=== PATIENT | female | born 1995 | race Two or more races ===

== ENCOUNTER 2023-03-04 17:06 | Observation (INO) | payer OTHER | END 2023-03-04 20:54 | disposition home or self-care (01) | LOC: LDRP 17:06 | PROVIDERS: ADMIT Obstetrics & Gynecology; ATTEND Obstetrics & Gynecology | DX: O47.1 False labor at or after 37 completed weeks of gestation (principal); Z3A.40 40 weeks gestation of pregnancy | CPT/HCPCS: 59025; 81002; 94760; G0378 ==

== ENCOUNTER 2023-03-05 05:48 | Inpatient (IN) | payer OTHER ==
[~2023-03-05] VITALS: Ht 160 cm; Wt 100.7 kg
[2023-03-05] MEDS ORDERED: WITCH HAZEL-GLYCERIN PAD TOP PRN (07:00)
[2023-03-05] MEDS ORDERED: LIDOCAINE 2%HCL (LOCAL ANESTH.) INJ 20ML MDV IJ PRN (07:00)
[2023-03-05] MEDS ORDERED: PROMETHAZINE HCL 25 MG/ML 1ML IM PRN (07:00)
[2023-03-05] MEDS ORDERED: PROMETHAZINE HCL 25 MG/ML 1ML IV PRN (07:00)
[2023-03-05] MEDS ORDERED: BUTORPHANOL TARTRATE 2 MG/1 ML VIAL IV PRN ×2 (07:00)
[2023-03-05] MEDS ORDERED: PHISODERM TOP SOLN 240ML BTL TOP PRN (07:00)
[2023-03-05] MEDS ORDERED: LACT. RINGERS/OXYTOCIN 20UNITS 500 ML IV ONE (07:30)
[2023-03-05 07:36] LABS: Urine Epithelial Cast None Seen /hpf (<5)
[2023-03-05 07:49] LABS: Basophils # (auto) 0 10 ^3/uL (0-0.2); Basophils % (auto) 0.3 % (0.0-2.0); Eosinophils # (auto) 0 10 ^3/uL (0-0.8); Eosinophils % (auto) 0.4 % (0.0-7.0); Hematocrit 35.7 % (36.0-46.0); Hemoglobin 11.3 g/dL (12.2-16.2); Lymphocytes # (auto) 1.8 10 ^3/uL (0.4-5.4); Lymphocytes % (auto) 16.8 % (10.0-50.0); Mean Corpuscular Hemoglobin 24.6 pg (28.0-32.0); Mean Corpuscular Hgb Conc. 31.7 g/dL (32.0-36.0); Mean Corpuscular Volume 77.8 fL (80.0-100.0); Monocytes % (auto) 9.2 % (0.0-12.0); Neutrophils # (auto) 7.9 10 ^3/uL (1.6-8.6); Neutrophils % (auto) 73.3 % (37.0-80.0); Red Blood Cells 4.59 10^6/uL (4.0-5.20); Red Cell Distribution Width 16.2 % (11.8-14.3); White Blood Cell 10.7 10^3/uL (4.4-10.8)
[2023-03-05] MEDS: LACTATED RINGER'S 1,000 ML IV SCH ×3 (07:49→15:32)
[2023-03-05] MEDS: DERMOPLAST 60ML BOTTLE TOP PRN (07:52)
[2023-03-05 08:06] LABS: Urine Bacteria NONE SEEN /hpf (None Seen); Urine Blood 3+ /uL (Negative); Urine Clarity HAZY (Clear); Urine Color Colorless (Yellow); Urine Protein, UAD Negative (Negative); Urine Specific Gravity 1.005 (1.001-1.035); Urine Urobilinogen Normal (Negative); Urine WBC 9 /hpf (0 - 5); Urine pH 6.5 (5.0-8.0)
[2023-03-05 08:12] LABS: INR 0.9 (0.9-1.15); Partial Thromboplastin Time 25.9 SEC (24.5-34.5); Prothrombin Time 9.5 sec (9.3-11.8)
[2023-03-05 08:16] LABS: Amphetamine Screen, Urine Neg (NEGATIVE); Barbiturate Scree,Urine Neg (NEGATIVE); Benzodiazephine Screen, Urine Neg (NEGATIVE); Cannabinoid Screen, Urine Neg (NEGATIVE); Cocaine Screen, Urine Neg (NEGATIVE); Opiate Scree,Urine Neg (NEGATIVE); Phencyclidine Screen, Urine Neg (NEGATIVE)
[2023-03-05 08:17] LABS: Alanine Aminotransferase < 9 U/L (7-40); Albumin 3.9 g/dL (3.2-4.8); Alkaline Phosphatase 176 U/L (46-116); Anion Gap 10 (5-15); Aspartate Aminotransferase 13 U/L (13-40); BUN/Creatinine Ratio 9.1 (10.0-20.0); Bilirubin, Total 0.4 mg/dL (0.2-1.0); Blood Urea Nitrogen < 5 mg/dL (9-23); Carbon Dioxide 21 mmol/L (20-30); Chloride 106 mmol/L (98-107); Glucose 79 mg/dL (74-106); Potassium 3.9 mmol/L (3.5-5.1); Sodium 137 mmol/L (136-145); Total Protein 6.4 g/dL (5.7-8.2)
[2023-03-05] MEDS ORDERED: NALOXONE HCL 0.4 MG/ML VIAL IV ONE (08:30)
[2023-03-05] MEDS ORDERED: ePHEDrine SULFATE 50 MG/ML AMP IV ONE (08:30)
[2023-03-05] MEDS ORDERED: LIDOCAINE HCL 2 %PF INJ 10ML AMP IJ ONE (08:30)
[2023-03-05] MEDS ORDERED: fentaNYL CITRATE 100 MCG/2 ML VL IV ONE (08:30)
[2023-03-05] MEDS ORDERED: LACT. RINGERS/OXYTOCIN 20UNITS 1,000 ML IV SCH (09:00)
[2023-03-05] MEDS ORDERED: TERBUTALINE SULFATE 1 MG/ML 1ML VIAL SC PRN (09:00)
[2023-03-05] MEDS ORDERED: AZITHROMYCIN 250 MG TAB PO SCH (10:00)
[2023-03-05] MEDS ORDERED: ROPIVACAINE HCL 100 ML ONE (10:09)
[2023-03-05] MEDS ORDERED: ONDANSETRON HCL 4 MG/2 ML VIAL IV PRN (13:15)
[2023-03-05] MEDS ORDERED: miSOPROStol 100 mcg TAB ONE (19:24)
[2023-03-05] MEDS ORDERED: METHYLERGONOVINE MALEATE 0.2 MG/ML AMP IM ONE ×2 (19:25→21:15)
[2023-03-05] MEDS ORDERED: ONDANSETRON ODT 4 MG TAB PO PRN (20:45)
[2023-03-05] MEDS ORDERED: ACETAMINOPHEN 325 MG TAB PO PRN (20:45)
[2023-03-05] MEDS: IBUPROFEN 600 MG TAB PO PRN (21:06)
[2023-03-05] MEDS ORDERED: DOCUSATE SOD 100 MG CAP PO SCH (22:00)
[2023-03-05] MEDS: LACT. RINGERS/OXYTOCIN 20UNITS 500 ML IV ONE (22:32)
[2023-03-05] MEDS: PIPERACILLIN-TAZOB 3.375GM 100 ML IV SCH (22:41)
[2023-03-05 23:00] VITALS: BP 124/79; PULSE 95; RESP 20; TEMP 98; O2SAT 99
[2023-03-06 03:00] VITALS: BP 109/62; PULSE 93; RESP 16; TEMP 98.3
[2023-03-06] MEDS: LACT. RINGERS/OXYTOCIN 20UNITS 500 ML IV ONE (03:00)
[2023-03-06] MEDS: IBUPROFEN 600 MG TAB PO PRN (03:18)
[2023-03-06] MEDS: PIPERACILLIN-TAZOB 3.375GM 100 ML IV SCH ×3 (05:13→13:51)
[2023-03-06 07:00] VITALS: BP 126/65; PULSE 100; RESP 16; RESP 20; TEMP 97.7; O2SAT 98
[2023-03-06 07:06] LABS: RPR Non Reactive (Non Reactive)
[2023-03-06 07:27] LABS: Basophils # (auto) 0 10 ^3/uL (0-0.2); Basophils % (auto) 0.2 % (0.0-2.0); Eosinophils # (auto) 0 10 ^3/uL (0-0.8); Eosinophils % (auto) 0.2 % (0.0-7.0); Hematocrit 25.9 % (36.0-46.0); Hemoglobin 8.2 g/dL (12.2-16.2)
[2023-03-06 07:29] LABS: Lymphocytes # (auto) 1.8 10 ^3/uL (0.4-5.4); Lymphocytes % (auto) 9.8 % (10.0-50.0); Mean Corpuscular Hemoglobin 24.9 pg (28.0-32.0); Mean Corpuscular Hgb Conc. 31.8 g/dL (32.0-36.0); Mean Corpuscular Volume 78.2 fL (80.0-100.0); Neutrophils # (auto) 14.1 10 ^3/uL (1.6-8.6); Neutrophils % (auto) 78.8 % (37.0-80.0); Red Blood Cells 3.31 10^6/uL (4.0-5.20); Red Cell Distribution Width 16.6 % (11.8-14.3); White Blood Cell 17.9 10^3/uL (4.4-10.8)
[2023-03-06 08:22] LABS: Alkaline Phosphatase 119 U/L (46-116); Calcium 8.5 mg/dL (8.5-10.1); Carbon Dioxide 23 mmol/L (20-30); Chloride 108 mmol/L (98-107)
[2023-03-06 08:23] LABS: Anion Gap 8 (5-15); Aspartate Aminotransferase 23 U/L (13-40); BUN/Creatinine Ratio 11.1 (10.0-20.0); Blood Urea Nitrogen 7 mg/dL (9-23); Glucose 87 mg/dL (74-106); Sodium 139 mmol/L (136-145)
[2023-03-06 08:24] LABS: Bilirubin, Total 0.5 mg/dL (0.2-1.0); Total Protein 4.9 g/dL (5.7-8.2)
[2023-03-06 08:30] LABS: Alanine Aminotransferase < 9 U/L (7-40)
[2023-03-06 11:00] VITALS: BP 108/67; PULSE 101; RESP 20; TEMP 97.7; O2SAT 97
[2023-03-06 15:06] VITALS: BP 104/59; PULSE 100; RESP 20; TEMP 97.7; O2SAT 98
[2023-03-06] MEDS: DERMOPLAST 60ML BOTTLE TOP PRN (18:36)
[2023-03-06 18:50] VITALS: BP 129/73; PULSE 107; RESP 17; TEMP 97.6; O2SAT 99
[2023-03-06] MEDS ORDERED: PIPERACILLIN-TAZOB 3.375GM 100 ML IV SCH ×2 (20:30)
[2023-03-07 03:36] LABS: Chlamydia Trachomatis, NAA Negative (Negative); Neisseria gonorrhoeae, NAA Negative (Negative)
[2023-03-08 20:06] LABS: Treponema pallidum Ab (FTA-Ab) Non Reactive (Non Reactive)
== END 2023-03-06 20:50 | disposition home or self-care (01) | DRG 805 ==
LOC: LDRP 05:48 → OBSVTOIN 06:40 → LDRP 20:53
PROVIDERS: ADMIT Obstetrics & Gynecology; ATTEND Obstetrics & Gynecology
PROC: 10D07Z6 Extraction of Products of Conception, Vacuum, Via Natural or Artificial Opening (ICD-10-PCS; principal; 2023-03-05)
PROC: 0KQM0ZZ Repair Perineum Muscle, Open Approach (ICD-10-PCS; 2023-03-05)
PROC: 10H07YZ Insertion of Other Device into Products of Conception, Via Natural or Artificial Opening (ICD-10-PCS; 2023-03-05)
PROC: 10907ZC Drainage of Amniotic Fluid, Therapeutic from Products of Conception, Via Natural or Artificial Opening (ICD-10-PCS; 2023-03-05)
PROC: 3E0R3BZ Introduction of Anesthetic Agent into Spinal Canal, Percutaneous Approach (ICD-10-PCS; 2023-03-05)
PROC: 00HU33Z Insertion of Infusion Device into Spinal Canal, Percutaneous Approach (ICD-10-PCS; 2023-03-05)
DX: O48.0 Post-term pregnancy (principal); O41.1230 Chorioamnionitis, third trimester, not applicable or unspecified; Z37.0 Single live birth; O75.2 Pyrexia during labor, not elsewhere classified; R71.0 Precipitous drop in hematocrit; Z3A.40 40 weeks gestation of pregnancy; O70.1 Second degree perineal laceration during delivery; O76 Abnormality in fetal heart rate and rhythm complicating labor and delivery; O99.892 Other specified diseases and conditions complicating childbirth
CPT/HCPCS: 36415; 59025; 59409; 62282; 80053; 80307; 81001; 81002; 85025; 85610; 85730; 86592; 86850; 86900; 86901; 94760; 96360; 96361; 96365; 96366; G0378; J2543; J2590

== ENCOUNTER 2023-11-23 17:53 | Emergency (ER) | payer MEDICAID, OTHER ==
[~2023-11-23] VITALS: Ht 162.6 cm; Wt 94.4 kg
[2023-11-23 18:14] VITALS: BP 128/85; PULSE 111; RESP 18; O2SAT 96
[2023-11-23 18:53] LABS: Urine Bacteria FEW /hpf (None Seen); Urine Blood Negative /uL (Negative); Urine Clarity Clear (Clear); Urine Color Light-Yellow (Yellow); Urine Protein, UAD Negative (Negative); Urine Specific Gravity 1.021 (1.001-1.035); Urine Urobilinogen Normal (Negative); Urine WBC 1 /hpf (0 - 5)
[2023-11-23] MEDS ORDERED: HYDR-4902 PO (19:59)
== END 2023-11-23 20:50 | disposition home or self-care (01) ==
LOC: ER 17:53
DX: N83.202 Unspecified ovarian cyst, left side (principal); R10.2 Pelvic and perineal pain; Z79.899 Other long term (current) drug therapy
CPT/HCPCS: 76856; 81001; 81025

== ENCOUNTER 2024-12-21 17:29 | Emergency (ER) | payer MEDICAID ==
[~2024-12-21] VITALS: Ht 162.6 cm; Wt 100.4 kg
[~2024-12-21 17:29] MED LIST: HYDR-4902 PO
[2024-12-21 17:33] VITALS: TEMP 97.4
--- NOTE | 2024-12-21 18:33 | ED.PDOC ---
History of Present Illness HPI Comments 29 y/o F, presents to the ED for CC of flank-pain. Patient states, she has been experiencing left-sided flank pain sudden onset, this morning (12/21/24). Patient reports, pain to worsen with movement and with inspiration. Patient denies any trauma, injury, fall, or urinary symptoms. No other symptoms or yaa fying factors are present at this time. Chief Complaint: Flank Pain Time Seen by MD: 18:20 Primary Care Provider: THAD Auguste Notes: Nurses Notes, Medications, Allergies Allergies: Coded Allergies: NO KNOWN ALLERGIES (Unverified , 03/05/23) Home Meds Active Scripts Tramadol HCl (Tramadol HCl) 50 Mg Tab, 50 MG PO Q12HP PRN for 5 Days, #10 TAB Prov:ENRIQUE ARREGUIN MD 12/21/24 Hydrocodone-Acetaminophen (Hydrocodone Bitartrate/AC 5-325 mg) 1 Tab Tab, 1 TAB PO Q8HP PRN for 5 Days, #15 TAB Prov:ENRIQUE ARREGUIN MD 11/23/23 Information Source: Patient Mode of Arrival: Ambulatory Severity: Moderate Timing: Hours Duration: Since onset Prehospital treatment: None Past Medical History PAST MEDICAL HISTORY: Denies Surgical History: Denies all surgeries [employer] History: Ovarian Cysts Family History Family History: Family hx of DM, Family hx of heart leigh Social History Smoker: Non-Smoker Alcohol: Occasionally Drugs: Denies Drug Use Lives In: Home Constitutional: denies: chills, diaphoresis, fatigue, fever, malaise, sweats, weakness, others EENTM: denies: blurred vision, double vision, ear bleeding, ear discharge, ear drainage, ear pain, ear ringing, eye pain, eye redness, hearing loss, mouth pain, mouth swelling, nasal discharge, nose bleeding, nose congestion, nose pain, photophobia, tearing, throat pain, throat swelling, voice changes, others Respiratory: denies: cough, hemoptysis, orthopnea, SOB at rest, shortness of breath, SOB with excertion, stridor, wheezing, others Cardiovascular: denies: chest pain, dizzy spells, diaphoresis, Dyspnea on exertion, edema, irregular heart beat, left arm pain, lightheadedness, palpitations, PND, syncope, others Gastrointestinal: denies: abdomen distended, abdominal pain, blood streaked bowels, constipated, diarrhea, dysphagia, difficulty swallowing, hematemesis, m nora, nausea, poor appetite, poor fluid intake, rectal bleeding, rectal pain, vomiting, others Genitourinary: reports: flank pain; denies: abnormal vagina bleeding, burning, dyspareunia, dysuria, frequency, hematuria, incontinence, pain, , vagina discharge, urgency, others Neurological: denies: dizziness, fainting, headache, left sided numbness, left sided weakness, numbness, paresthesia, pre-existing deficit, right sided numbness, right sided weakness, seizure, speech problems, tingling, tremors, weakness, others Musculoskeletal: denies: back pain, gout, joint pain, joint swelling, muscle pain, muscle stiffness, neck pain, others Integumetry: denies: bruises, change in color, change in hair/nails, dryness, laceration, lesions, lumps, rash, wounds, others Hematologic/Lymphatic: denies: anemia, blood clots, easy bleeding, easy bruising, swollen glands, others Endocrine: denies: excessive hunger, excessive sweating, excessive thirst, excessive urination, flushing, intolerance to cold, intolerance to heat, unexplained weight gain, unexplained weight loss, others Psychiatric: denies: anxiety, bipolar disorder, depression, hopeless, panic disorder, schizophrenia, sleepless, suicidal, others All Other Systems: Reviewed and Negative Physical Exam General Appearance: No Apparent Distress HEENT: Normal ENT Inspection, Pharynx Normal, TMs Normal Neck: Full Range of Motion, Non-Tender, Normal, Normal Inspection Respiratory: Lungs Clear, No Accessory Muscle Use, No Respiratory Distress, Normal Breath Sounds, Other (Tenderness to the left upper back region consistent with possible musculoskeletal pain) Cardiovascular: No Edema, No JVD, No Murmur, No Gallop, Normal Peripheral Pulses, Regular Rate/Rhythm Breast Exam: Deferred Gastrointestinal: No Organomegaly, Non Tender, No Pulsatile Mass, Normal Bowel Sounds, Soft Genitalia: Deferred Pelvic: Deferred Rectal: Deferred Extremities: No calf tenderness, Normal capillary refill, Normal inspection, Normal range of motion, Non-tender, No pedal edema Musculoskeletal : Apperance: Normal Neurologic: Alert, knock out hand II-XII nml as Tested, No Motor Deficits, Normal Affect, Normal Mood, No Sensory Deficits Cerebellar Function: Normal Reflexes: Normal Skin: Dry, Normal Color, Warm Lymphatic: No Adenopathy Was a procedure done? Was a procedure done?: No Differential Dx Considerations may include: UROLITHIASIS, MUSCULOSKELETAL PAIN, STRAIN X-Ray, Labs, Meds, VS Vital Signs Date Time Temp Pulse Resp B/P (MAP) Pulse Ox O2 Delivery O2 Flow Rate FiO2 12/21/24 17:33 97.4 100 16 108/84 99 97.4 The chest x-ray shows negative for any abnormalities The diagnosis is musculoskeletal pain Images Reviewed?: Images reviewed and evaluated by me Time of 1ST Reevaluation: 18:50 Reevaluation 1ST: Unchanged Time of 2ND Reevaluation: 19:11 Reevaluation 2ND: Improved Patient Education/Counseling: Diagnosis, Treatment, Prognosis, Need For Follow Up Family Education/Counseling: No Family Present SEPSIS Sepsis Screen Date sepsis recognized/suspect: Dec 21, 2024 Time Sepsis recognized/suspect: 1735 Recent Procedure: No On Antibiotic Therapy: No Respiratory Rate >20: No Heart Rate >90: No Temp<36 C (96.8 F) or >38.3 C: No SBP <90 or MAP <65 mmHG: No New Acute Mental Status Change: No Is the patient on CPAP, BIPAP,: No Physician Orders Chest Two Views Routine (12/21/24 18:23) Vital Signs Date Time Temp Pulse Resp B/P (MAP) Pulse Ox O2 Delivery O2 Flow Rate FiO2 12/21/24 17:33 97.4 100 16 108/84 99 97.4 Departure 1 Departure Time of Disposition: 19:11 Impression: Primary Impression: Musculoskeletal pain Disposition: HOME / SELF CARE / HOMELESS Condition: Fair e-Prescriptions Tramadol HCl (Tramadol HCl) 50 Mg Tab 50 MG PO Q12HP PRN for 5 Days, #10 TAB Prov: ENRIQUE ARREGUIN MD 12/21/24 Discharged With: Self Critical Care Note Critical Care Time?: No Stability Stability form required: No Heart Score Heart Score: Heart Score Response (Comments) Value History N/A 0 EKG N/A 0 Age N/A 0 Risk Factors N/A 0 Troponin N/A 0 Total 0 I personally scribed for ENRIQUE ARREGUIN MD ([email or web address]) on 12/21/24 at 18:33. Electronically submitted by Ana Dumont ([email or web address]). ENRIQUE ARREGUIN MD Dec 21, 2024 18:33
--- NOTE | 2024-12-21 18:56 | DVH ---
CHEST RADIOGRAPH Indication: left back pain Technique: XY CHEST TWO VIEWS ROUTINE Comparison: None FINDINGS: The cardiac silhouette is unremarkable. The lungs demonstrate no pulmonary airspace consolidation. The pulmonary vasculature is unremarkable. There is no pleural effusion. There is no pneumothorax. IMPRESSION: No pulmonary airspace consolidation.
[2024-12-21] MEDS ORDERED: TRAM-626 PO (19:09)
[2024-12-21 19:20] VITALS: PULSE 85; RESP 16; O2SAT 97
[2024-12-21 19:22] VITALS: BP 128/89; PULSE 88; RESP 20; O2SAT 97
[2024-12-21] MEDS: KETOROLAC TROMETH 60MG/2ML VIAL IM ONE (19:25)
== END 2024-12-21 19:24 | disposition home or self-care (01) ==
LOC: ER 17:29
DX: R10.A2 Flank pain, left side (principal); F10.90 Alcohol use, unspecified, uncomplicated; Z79.899 Other long term (current) drug therapy; Y90.9 Presence of alcohol in blood, level not specified
CPT/HCPCS: 71046